=== PATIENT | male | born 1995 | race Caucasian/White ===

== ENCOUNTER → 2018-10-22 | Outpatient (CLI) | payer BC, OTHER ==
--- NOTE | 2018-10-22 10:12 | KCIC ---
MRI of the lumbar spine without contrast 10/22/2018 CLINICAL HISTORY: Low back pain. TECHNIQUE: Unenhanced T1-weighted and T2-weighted sagittal and axial and inversion recovery sagittal images of the lumbar spine were obtained. FINDINGS: Minimal S-shaped curvature of the thoracolumbar spine is seen. Degenerative signal changes and loss of height are seen involving the L5-S1 disc. The marrow signal of the visualized bony structures is within normal limits. The conus medullaris is normal morphology, position, and signal characteristics. At the L1-2 disc space there is a mild generalized disc bulge. Superimposed on this disc bulge is a focal central disc protrusion which extrudes slightly superiorly. This measures 3 mm in AP diameter. Degenerative changes are seen involving the facet joints bilaterally. These findings do not result in significant central spinal canal or neural foraminal stenosis. The L2-3, L3-4 and L4-5 disc spaces are within normal limits. At the L5-S1 disc space there is a mild to moderate generalized disc bulge. Superimposed on this disc bulge is a right paracentral focal disc protrusion. This measures 3 mm in AP diameter. Degenerative changes are seen involving the facet joints bilaterally. These findings result in mild right lateral central spinal canal stenosis. The disc protrusion may impinge to some degree upon the right S1 nerve root within the right lateral aspect of the central spinal canal. No neural foraminal stenosis is seen. IMPRESSION: The changes of degenerative disc disease are seen involving the lumbar spine as outlined above. These findings result in mild right lateral central spinal canal stenosis at L5-S1. No neural foraminal stenosis is seen. A right paracentral focal disc protrusion is seen at L5-S1 which may impinge to some degree upon the right S1 nerve root within the right lateral aspect central spinal canal. Clinical correlation with this finding is recommended. Electronically signed by: Chad Chiang MD (10/22/2018 10:09 AM) [facility]
== END | disposition home or self-care (01) ==
LOC: KCIC MRI 08:08
PROVIDERS: ATTEND Family Medicine Sports Medicine
DX: M51.16 Intervertebral disc disorders with radiculopathy, lumbar region (principal); M51.27 Other intervertebral disc displacement, lumbosacral region; M48.07 Spinal stenosis, lumbosacral region; R29.890 Loss of height
CPT/HCPCS: 72148